=== PATIENT | male | born 1990 | race Caucasian/White ===

== ENCOUNTER 2020-12-09 08:17 | Emergency (ER) | payer MEDICAID ==
[~2020-12-09] VITALS: Ht 177.8 cm; Wt 74.8 kg
--- NOTE | 2020-12-09 08:33 | NUR ---
LEFT LEG PAIN/SWELLING SINCE YESTERDAY, THINKS, HE MAY HAD HIT IT AGAINST SOMETHING WHILE RUNNING. RATES PAIN 5/10. WILL CONTINUE TO MONITOR THE PATIENT.
--- NOTE | 2020-12-09 08:37 | NUR ---
TO ER BED 11 FOR EVAL
[2020-12-09] MEDS ORDERED: NAPROXEN 250 MG TABLET ONE ×2 (09:21→09:34)
[2020-12-09] MEDS: NAPROXEN 250 MG TABLET PO ONE ×2 (09:27→09:35)
[2020-12-09] MEDS ORDERED: NAPR-1192 PO (09:29)
[2020-12-09 09:36] VITALS: BP 118/68
--- NOTE | 2020-12-09 09:36 | NUR ---
Patient discharged to home in stable condition. Written and verbal after care instructions given. Patient verbalizes understanding of instruction.
== END 2020-12-09 09:37 | disposition home or self-care (01) ==
LOC: ER 08:22
DX: M79.605 Pain in left leg (principal); F10.10 Alcohol abuse, uncomplicated; F17.200 Nicotine dependence, unspecified, uncomplicated; Y90.9 Presence of alcohol in blood, level not specified; Z79.899 Other long term (current) drug therapy
CPT/HCPCS: 73590-TC